=== PATIENT | male | born 1975 | race Caucasian/White ===

== ENCOUNTER 2022-02-22 18:47 | Emergency (ER) | payer BC ==
[2022-02-22] MEDS ORDERED: Ketorolac 60 MG/2 ML SDV IM ONE (19:23)
== END 2022-02-22 19:53 | disposition home or self-care (01) ==
LOC: JD.ED 18:47
DX: U07.1 COVID-19 (principal); F17.210 Nicotine dependence, cigarettes, uncomplicated; Z28.310 Unvaccinated for COVID-19; Z86.16 Personal history of COVID-19
CPT/HCPCS: 96372; 99283; J1885

== ENCOUNTER 2022-11-16 17:04 | Emergency (ER) | payer BC, MEDICAID | END 2022-11-16 18:31 | disposition home or self-care (01) | LOC: JD.ED 17:04 | DX: S92.355A Nondisplaced fracture of fifth metatarsal bone, left foot, initial encounter for closed fracture (principal); I10 Essential (primary) hypertension; F17.210 Nicotine dependence, cigarettes, uncomplicated; Z86.16 Personal history of COVID-19 | CPT/HCPCS: 73630-26-LT; 73630-LT; 99283 ==